=== PATIENT | female | born 1985 | race Caucasian/White ===

== ENCOUNTER → 2021-08-28 14:35 | Observation (INO) ==
[2021-08-28 10:23] LABS: Bacteria,Urine Few per hpf (None-Few); Bilirubin,Urine Negative (Negative); Blood,Urine Small (Negative); Clarity,Urine Clear (Clear); Color,Urine Light-Yellow (Yellow); Glucose,Urine (UA) Normal (Normal); Ketones,Urine Negative (Negative); Leukocyte Esterase,Urine Small (Negative); Mucus,Urine Few per lpf (None-Few); Nitrite,Urine Negative (Negative); PH,Urine 6.5 pH Units (5.0-8.0); Protein,Urine Negative (Neg-Trace); RBC,Urine 0-3 per hpf (0-3); Specific Gravity,Urine 1.012 (1.010-1.025); Squamous Epithelial Cell,Urine Few per hpf (None-Few); Urobilinogen,Urine Normal (Normal); WBC,Urine 0-3 per hpf (0-3)
[2021-08-28 11:55] LABS: Candida DNA Not Detected (Not Detect); Gardnerella DNA Not Detected (Not Detect); Trichomonas DNA Not Detected (Not Detect)
[~2021-08-28 14:35] MED LIST: Ringers Solution, Lactated 1,000 ML IVC SCH; cefTRIAXone 2,000 MG in 0.9 % Sodium Chloride 20 ML IVP ONE
== END | disposition home or self-care (01) ==
LOC: 1NENULAB
PROVIDERS: ADMIT Obstetrics & Gynecology; ATTEND Obstetrics & Gynecology

== ENCOUNTER 2021-09-13 04:29 | Observation (INO) ==
[2021-09-13 05:09] LABS: Bilirubin,Urine Negative (Negative); Blood,Urine Negative (Negative); Clarity,Urine Clear (Clear); Color,Urine Colorless (Yellow); Glucose,Urine (UA) Normal (Normal); Ketones,Urine Negative (Negative); Leukocyte Esterase,Urine Negative (Negative); Nitrite,Urine Negative (Negative); PH,Urine 6.5 pH Units (5.0-8.0); Protein,Urine Negative (Neg-Trace); Specific Gravity,Urine 1.007 (1.010-1.025); Urobilinogen,Urine Normal (Normal)
== END 2021-09-13 05:20 | disposition home or self-care (01) ==
LOC: 1NENULAB
PROVIDERS: ADMIT Obstetrics & Gynecology; ATTEND Obstetrics & Gynecology

== ENCOUNTER 2021-10-10 05:54 | Inpatient (IN) ==
[2021-10-10] MEDS ORDERED: EPHEDrine 50 MG/ML VIAL IVP PRN (06:20)
[2021-10-10] MEDS ORDERED: Epidural Premix (fent/bupiv) 110 ML EP SCH (06:30)
[2021-10-10] MEDS ORDERED: Naloxone 0.4 MG/ML INJ IVP PRN (06:36)
[2021-10-10] MEDS ORDERED: Famotidine 20 MG/2 ML VIAL IVP PRN (06:36)
[2021-10-10] MEDS ORDERED: *HR* Nalbuphine 10 MG/ML AMPUL IV PRN (06:36)
[2021-10-10] MEDS ORDERED: miSOPROStoL 25 MCG TABLET PO PRN (06:36)
[2021-10-10] MEDS ORDERED: Metoclopramide 10 MG/2 ML VIAL IVP PRN (06:36)
[2021-10-10] MEDS ORDERED: Oxytocin 30 UNIT/503 ML BAG IVC SCH ×2 (06:45→21:10)
[2021-10-10 08:05] LABS: Basophils % 0.4 %; Eosinophils # 0.3 K/mcL (0.0-0.6); Eosinophils % 3.2 %; Hematocrit 38.6 % (35.3-44.9); Hemoglobin 12.5 g/dL (11.5-15.4); Immature Granulocytes % 0.5 % (0-4); Lymphocytes # 1.4 K/mcL (0.6-4.6); Mean Corpuscular HGB Conc 32.4 g/dL (31.6-35.5); Mean Corpuscular Hemoglobin 30.3 pg (28.0-33.3); Mean Corpuscular Volume 93.5 fL (83.0-100.0); Mean Platelet Volume 10.1 fL (9.4-12.4); Monocytes # 0.7 K/mcL (0.0-1.3); Monocytes % 6.5 %; Neutrophils # 8.2 K/mcL (1.6-8.9); Platelet Count 213 K/mcL (140-400); Red Blood Count 4.13 M/mcL (3.82-4.97); Red Cell Distribution Width 13.5 % (11.5-14.5); Segmented Neutrophils % 76.4 %; White Blood Count 10.7 K/mcL (4.3-11.1)
[2021-10-10] MEDS: Ringers Solution, Lactated 1,000 ML IVC SCH ×2 (08:09→11:16)
[2021-10-10] MEDS ORDERED: Ropivacaine/PF 0.2% 20 ML VIAL ONE (10:23)
[2021-10-10 12:05] LABS: Amphetamine Screen,Urine Negative ng/mL (Cutoff=1000); Barbiturate Screen,Urine Negative ng/mL (Cutoff=200); Benzodiazepines Screen,Urine Negative ng/mL (Cutoff=200); Cannabinoid Screen,Urine Negative ng/mL (Cutoff = 50); Cocaine Screen,Urine Negative ng/mL (Cutoff= 300); Opiate Screen,Urine Negative ng/mL (Cutoff=300); Phencyclidine Screen,Urine Negative ng/mL (Cutoff=25)
[2021-10-10] MEDS ORDERED: Ondansetron 4 MG/2 ML VIAL IVP PRN (14:13)
[2021-10-10] MEDS ORDERED: 0.9 % Sodium Chloride 1,000 ML ONE (14:53)
[2021-10-10] MEDS ORDERED: Acetaminophen 325 MG TABLET PO ONE (19:20)
[2021-10-10] MEDS ORDERED: Ondansetron ODT 4 MG TAB.RAPDIS SL PRN (21:10)
[2021-10-10] MEDS ORDERED: Lanolin 7 G OINT...G. TP PRN (21:10)
[2021-10-10] MEDS ORDERED: Benzocaine/Menthol 56 GM AEROSOL SPRAY TP PRN (21:10)
[2021-10-10] MEDS ORDERED: OXYTOCIN/RINGERS LACTATE 10 UNIT/166.6 ML BAG IVC ONE (21:10)
[2021-10-10] MEDS: Ibuprofen 600 MG TABLET PO SCH (22:14)
[2021-10-11] MEDS: Acetaminophen 325 MG TABLET PO SCH ×3 (03:00→16:26)
[2021-10-11] MEDS: Ibuprofen 600 MG TABLET PO SCH ×2 (05:40→16:26)
[2021-10-11 06:46] VITALS: PULSE 85; TEMP 97.9; O2SAT 97
[2021-10-11] MEDS ORDERED: Prenatal Vit/FA 1 EACH TABLET PO SCH (09:00)
[2021-10-11 15:43] VITALS: BP 116/61
== END 2021-10-11 18:46 | disposition home or self-care (01) | DRG 807 ==
LOC: 1NENULAB 05:54 → 1NENUOBS 21:07
PROVIDERS: ADMIT Obstetrics & Gynecology; ATTEND Obstetrics & Gynecology